=== PATIENT | female | born 1945 | race Caucasian/White ===

== ENCOUNTER 2016-11-16 16:35 | Emergency (ER) | payer MEDICARE, MEDICAID ==
[~2016-11-16] VITALS: Ht 152.4 cm; Wt 100.7 kg
[~2016-11-16 16:35] MED LIST: ALBUTEROL-200 PUFFS/ IH; AMARYL 4MG. TAB4 MG PO; BACTRIM DS 8001 TAB PO; BENADRYL 25MG C25 MG PO; CALCIUM WITH V1 EAC1 PO; CEFTIN500 MG PO; CEPHALEXIN500 MG PO; CINNAMON500 MG PO; CLONAZEPAM0.5 M1 PO; DIFLUCAN150 MG PO; DIOVAN HCT1 TA1 PO; DIOVAN80 MG OR; DIOVAN80 MG PO; ENTERIC ASPIRI325 MG PO; FLUTICASON0.05 MG/A1 NS; GABAPENTIN300 MG PO; GENERLAC10 GM/15 M PO; IRON TABLETS325 MG PO; JANUVIA100 MG PO; LACTULOSE10 GM/15 M PO; LANTUS INS100 UNITS/ SC; LASIX 40MG. TAB40 MG PO; LORTAB 5/500 501 TAB PO; METFORMIN1000 MG PO; METOPROLOL50 MG PO; MULTIPLE VITAMI1 T12 PO; NASONEX0.05 MG/AC NS; NEXIUM40 MG PO; PROVENTIL0.09 MG/AC IH; SYMBICORT1 AE1 IH; TALWIN NX1 TAB PO; TRAMADOL 50MG T50 M1 PO; VITAMIN E 400400 IU PO; ZYLOPRIM 100MG100 MG PO
--- NOTE | 2016-11-16 17:12 | Emergency Room Report ---
History of Present Illness Time Seen by 170Oneil Presenting Problem in Triage Pt arrived:Wheelchair Presenting Problem:PT WAS CLEANING HER HOUSE EARLIER THIS AFTERNOON AND SLIPPED ON PLEDGE IN THE FLOOR. PT HAS PAIN IN THE LEFT HIP DOWN INTO THE LEFT LEG Onset of symptoms date/time:/ or onset unknown for:MEDICAL HX UNKNOWN Treatment Prior to Arrival: STAFFING DIRECTOR Provided by: Sepsis Risk Assessment: Temp: 98.2 B/P: 147/69 MAP: 95 Pulse: 89 Resp: 16 Recent fever? N Clinical Suspician of Infection? N Mental Status: 1 - Regular (Normal Baseline) Sepsis Risk:Low Sepsis Risk Have you (or family members/close friends) recently traveled outside the [place]? N If Yes, where/when: Have you had exposure to infectious disease within the past month? N TB? Other? Specify: Comment The patient fell today while cleaning and landed on her LEFT side. Her primary pain is in her posterior LEFT hip and buttock area down into her LEFT thigh. Increased pain with standing. She normally uses a cane, but also has a walker at home. She has some slight pain in the top of her LEFT shoulder as well. She is on aspirin, she is not on any other blood thinners. She is on tramadol for pain, but says it does not even help her arthritis pain and does not think it will work for her current pain. 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 ALLERGIES Coded Allergies: amoxicillin (From AUGMENTIN) (Intermediate, I-RASH 10/26/15) clarithromycin (From BIAXIN) (Intermediate, NA-NAUSEA/VOMITING 10/26/15) clavulanic acid (From AUGMENTIN) (Intermediate, I-RASH 10/26/15) simvastatin (10/26/15) Home Medications Active Scripts ALLOPURINOL (ZYLOPRIM 100MG) 100 MG PO DAILY #30 TAB Prov: 10/03/14 Reported Medications Lactulose (Generlac) 10 ML PO TWICE A DAY VALSARTAN/HYDROCHLOROTHIAZIDE (Diovan Hct 160-25 MG Tablet) 1 TAB PO DAILY Clonazepam (Clonazepam 0.5MG) 0.5 MG PO TID Furosemide (Lasix 40MG) 20 MG PO DAILY PRN Aspirin (Enteric Aspirin) 325 MG PO QHS Fluticasone Propionate 0.05 MG NS QHS Diphenhydramine Hcl (Benadryl 25MG CAP) 1-2 CAP PO QHS METFORMIN HCL (Metformin) 1,000 MG PO TWICE A DAY Glimepiride (Amaryl 4MG) 4 MG PO DAILY Sitagliptin Phosphate (Januvia 100MG) 100 MG PO DAILY Metoprolol Tartrate (Metoprolol) 50 MG PO DAILY BUDESONIDE/FORMOTEROL FUMARATE (Symbicort 160-4.5 Mcg Inhaler) 1 PUFF IH BID Insulin Glargine (Lantus Insulin Vial) 50 UNITS SC DAILY Insulin Glargine (Lantus Insulin Vial) 50 UNITS SC QHS TRAMADOL HCL (Tramadol) 50 MG PO Q4HP PRN PAIN MULTIVITAMIN (Multiple Vitamins) 1 TAB PO DAILY Calcium Carbonate/Vitamin D3 (Calcium With Vit D Tablet) 1 EACH PO DAILY Lactulose (Lactulose) 10 GM PO QID Vitamin E (Vitamin E 400 UNITS) 400 IUNITS PO BID Albuterol (Albuterol-Hfa Inhaler) 2 PUFFS IH Q4HP #1 INH History Medical History General CAD? Yes Angina: Yes DC: Yes Hypertension? Yes Hyperlipidemia? No CHF? No DVT? No PE? No COPD? Yes Asthma? Yes Anemia? Yes GERD? Yes Gastric ulcers? Yes GI Bleed? Yes Hernia? No Thyroid Problems? No Hypothyroidism? No CVA? No Seizures? No Diabetes? Yes Insulin Dependent: Yes Insulin Pump: No Home FSBS? Yes Renal Insuffiency? No End Stage Renal Disease? No UTI? No Stones? No BPH? No GB Disease: Yes Nephritic Syndrome? No Asplenia? No Hepatitis? No Arthritis? Yes Migraines? No Cataracts? Yes Glaucoma? No MRSA? No HIV? No TB? No Anxiety? Yes Depression? No Cancer? No More? 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 INSOMNIA ARTHROPATHY Immunization Hx DT/Tetanus > 10 Years Ago Flu Refused Pneumonia 10/03/2014 Surgical Hx Previous Surgery?Y TONSILS HYSTERECTOMY/PARTIAL STENT [HEART] ROTATOR CUFF REPAIR PIN IN RIGHT SHOULDER GB REMOVAL Family History Family Hx Diabetes Yes CAD Yes Hypertension Yes Hyperlipidemia Yes Cancer No TB No Social History Smoking Hx Smoker: Never Smoker Tobacco: No Packs/day N/A Alcohol Alcohol: No Review of Systems All Other Systems Reviewed and Negative Musculoskeletal see HPI Psychiatric/Neurological denies numbness, denies weakness Physical Exam Vital Signs Vital Signs Date Time Temp Pulse Resp B/P Pulse O2 O2 Flow FiO2 Ox Delivery Rate 11/16 1746 98.2 89 14 147/69 98 11/16 1727 14 11/16 1638 98.2 89 16 147/69 98 General Appearance mild distress, sitting in wheelchair, able to stand with assistance Respiratory Status No: respiratory distress. Cardiovascular regular rate/rhythm, normal peripheral pulses Extremities no deformities. No shortening or malrotation of the lower extremities., tenderness of LEFT buttock and posterior thigh. Small 1 cm ecchymosis on the posterior buttock. No hematomas., normal range of motion of LEFT shoulder. Minimal superior tenderness. Neurologic alert, no motor/sensory deficits Medical Decision Making LABS/Meds/Orders Pt receiving controlled substance in ED? Yes Ollie was queried for this patient? Yes Results/Orders Current Medication Orders Sig/Nicole Start time Last Medication Dose Route Stop Time Status Admin Oxycodone HCl 5 MG ONCE ONE 11/16 1729 DC 11/16 PO 11/16 1730 1727 Orders Procedure Date/time Status [id number] VIEWS 11/16 1646 Active HIP BILATERAL 2 VIEW MIN EACH 11/16 1646 Active FEMUR-LT-2 VIEWS 11/16 1646 Active XRAY/CT/US XRAY/CT/US XRAY femur, hip, shoulder Comment Bilateral hip and pelvis X-ray interpreted by Smooth Grimaldo MD. Negative for fracture, dislocation, or foreign body. LEFT femur X-ray interpreted by Smooth Grimaldo MD. Negative for fracture, dislocation, or foreign body. LEFT shoulder X-ray interpreted by Smooth Grimaldo MD. Negative for fracture, dislocation, or foreign body. Departure Departure Disposition DC Home or Self Care(routine) Clinical Impression Primary Impression: Contusion of left thigh Qualifiers: Encounter type: initial encounter Qualified Code: S70.12XA - Contusion of left thigh, initial encounter Secondary Impressions: Contusion of left hip Qualifiers: Encounter type: initial encounter Qualified Code: S70.02XA - Contusion of left hip, initial encounter Contusion of left shoulder Qualifiers: Encounter type: initial encounter Qualified Code: S40.012A - Contusion of left shoulder, initial encounter Condition STABLE Referrals Oscar FRANCISCO,Eugene Sevilla (Family) Patient Instructions DI for Contusion Additional Instructions Wheelchair and walker as needed. Rest, ice, for 2-3 days. Follow-up with your primary care provider next week as scheduled. Prescriptions Current Visit Scripts OXYCODONE HCL (Oxycodone) 5 MG NG Q8HP PRN pain #12 TAB ED Critical Care Critical Care No at [id number]
[2016-11-16] MEDS ORDERED: Oxycodone5 MG NG (17:40)
[2016-11-16 17:46] VITALS: BP 147/69
--- NOTE | 2016-11-17 05:20 | RADIOLOGY REPORT PS360 ---
FEMUR-LT-2 VIEWS HISTORY: FALL WITH LEFT HIP PAIN ORDERING PHYSICIAN: Smooth Grimaldo MD PATIENT AGE: 71 years COMPARISON: None FINDINGS: No fracture or dislocation. No lytic or blastic change. There is normal mineralization. Mild osteoarthritic changes are present in the N there is mild generalized vascular calcification. IMPRESSION: No acute finding
--- NOTE | 2016-11-17 05:20 | RADIOLOGY REPORT PS360 ---
[id number]-UNI-3 VIEWS HISTORY: FALL WITH LEFT SHOULDER PAIN ORDERING PHYSICIAN: Smooth Grimaldo MD PATIENT AGE: 71 years COMPARISON: None FINDINGS: No fracture or dislocation. No lytic or blastic change. There is normal mineralization. The joint spaces are well-preserved. No significant degenerative/arthritic changes. No erosive changes evident. IMPRESSION: Negative, no acute finding
--- NOTE | 2016-11-17 05:21 | RADIOLOGY REPORT PS360 ---
HIP BILATERAL 2 VIEW MIN EACH CLINICAL INDICATION: Hip pain following injury FALL WITH HIP PAIN ORDERING PHYSICIAN: Smooth Grimaldo MD PATIENT AGE: 71 years COMPARISON: None FINDINGS: Normal alignment. No fracture or dislocation. No lytic or blastic change. IMPRESSION: Negative hips, No acute finding
--- OUTSIDE RECORDS SUMMARY | 2016-11-19 12:45 | External Medical Summary Rpt | CCD ---
Author Author [employer] Organization [employer] Address Unknown Phone Unavailable Purpose Continuity of Care Document - through 2016
--- OUTSIDE RECORDS SUMMARY | 2016-11-19 12:45 | External Medical Summary Rpt | CCD ---
Demographics Preferred Language Mongolian Marital Status Unknown Yarsani Affiliation Unknown Race Unknown Ethnic Group Unknown Author Author , ARIES CHRIS Address Unknown Phone [email or web address] Immunization Name Date Rout CVX Reac Dose Comm Prov Is Faci e tion ent ider Refu lity Give sed n PPV2 11-1 33 999 Hist H196 No H196 3 6-20 oric 07 al Info rmat ion - Sour ce Unsp ecif ied Td 03-0 9 999 Hist H196 No H196 (noy 5-19 oric lt), 97 al Info adso rmat rbed ion - Sour ce Unsp ecif ied
--- OUTSIDE RECORDS SUMMARY | 2016-11-19 12:45 | External Medical Summary Rpt | CCD ---
Demographics Preferred Language Romanian Marital Status Unknown Anglican Affiliation Unknown Race Unknown Ethnic Group Unknown Author Author , ARIES CHRIS Address Unknown Phone [email or web address] Immunization Name Date Rout CVX Reac Dose [...]
--- OUTSIDE RECORDS SUMMARY | 2016-11-19 12:46 | External Medical Summary Rpt ---
Author Author ARIES Rodríguez, [employer] Organization [employer] Address Unknown Phone Unavailable Results Hemogram Observa Value Referen Units Interpr Notes Date tion ce etation Range LEUKOCY 4.4 4.0 - x10(3)/ No No Feb 10 WILMAN 11.0 mcL informa informa 2017 tion in tion in 7:49 PM source source data data Erythro 3.42 3.80 - x10(6)/ Low No Feb 10 cytes 5.10 mcL informa 2016 [#/volu tion in 7:49 PM me] in source Blood data by Automat ed count Hemoglo 7.7 12.0 - gm/dL Low No Feb 10 bin 15.6 inform2016 [Mass/v tion in 7:49 PM olume] source in data Blood Hematoc 25.7 35.7 - % Low No Feb 10 rit 45.9 inform2016 [Volume tion in 7:49 PM source Fractio data n] of Blood by Automat ed count Erythro 75.0 82.5 - fL Low No Feb 10 cyte 99.8 2016 mean tion in 7:49 PM corpusc source ular data volume [Entiti c volume] by Automat ed count Erythro 22.6 27.0 - pg Low No Feb 10 cyte 34.3 inform2016 mean tion in 7:49 PM corpusc source ular data hemoglo bin [Entiti c mass] by Automat ed count Erythro 30.1 32.1 - gm/dL Low No Feb 10 cyte 35.3 informa 2017 mean tion in 7:49 PM corpusc source ular data hemoglo bin concent ration [Mass/v olume] by Automat ed count Erythro 19.8 11.5 - % High No Feb 10 cyte 15.0 informa 2017 distrib tion in 7:49 PM ution source width data [Ratio] by Automat ed count Platele 96 144 - x10(3)/ Low No Feb 10 ts 423 mcL informa 2017 [#/volu tion in 7:49 PM me] in source Blood data by Automat ed count MPV 10.8 6.8 - fL No No Mar 10 10.8 informa informa 2017 tion in tion in 7:49 PM source source data data
--- OUTSIDE RECORDS SUMMARY | 2016-11-19 12:46 | External Medical Summary Rpt ---
Author Author ARIES Rodríguez, [employer] Organization [employer] Address Unknown Phone Unavailable Results Hemogram [...]
== END 2016-11-16 17:46 | disposition home or self-care (01) ==
LOC: ER 16:35
DX: S70.12XA Contusion of left thigh, initial encounter (principal); S70.02XA Contusion of left hip, initial encounter; S40.012A Contusion of left shoulder, initial encounter; K21.9 Gastro-esophageal reflux disease without esophagitis; I10 Essential (primary) hypertension; E11.9 Type 2 diabetes mellitus without complications; Z79.4 Long term (current) use of insulin; J44.9 Chronic obstructive pulmonary disease, unspecified; Z79.82 Long term (current) use of aspirin; Z88.1 Allergy status to other antibiotic agents; W01.0XXA Fall on same level from slipping, tripping and stumbling without subsequent striking against object, initial encounter; Y92.019 Unspecified place in single-family (private) house as the place of occurrence of the external cause

== ENCOUNTER → 2017-01-23 | Outpatient (CLI) | payer MEDICARE, MEDICAID ==
[~2017-01-23] MED LIST changes: +Oxycodone5 MG NG
--- NOTE | 2017-01-23 16:04 | RADIOLOGY REPORT PS360 ---
US RUQ-(ABD LTD)1ORGAN/QUAD/FU Ordering Physician: KASIE HARTLEY APRN Patient Age: 71 years: Female HISTORY: CIRROHSIS TECHNIQUE: ] Right upper Quadrant ultrasound COMPARISON :Previous right upper quadrant ultrasound 05/05/2014 FINDINGS A difficult study due to body habitus overall. Pancreas unremarkable. Fair visualization of head, body and medial tail . Liver. No focal lesions. Coarse architecture slight increased echogenic coarse architecture , subtle irregular margin compatible with history of cirrhosis No biliary ductal dilatation. Portal vein normal size. Common duct normal diameter less than 2.5 mm at hilum of liver. Right kidney normal 11.55 cm length. Cortex well-maintained. Good color Doppler flow Gallbladder surgically absent. IMPRESSION: Coarse appears liver compatible with history of cirrhosis. No focal lesions no significant change since previous study 2014 Gallbladder surgically removed. No significant new findings
== END ==
LOC: RAD 01-19 10:00
DX: K74.69 Other cirrhosis of liver (principal)